=== PATIENT | male | born 1955 | race African-American/Black ===

== ENCOUNTER 2017-12-18 07:55 | Inpatient (IN) ==
[~2017-12-18 07:55] MED LIST: ACETAMINOPHEN 325 MG TABLET PO PRN; BISACODYL 5 MG TABLET PO PRN; MAGNESIUM HYDROXIDE SUSP 30 ML UDCUP PO PRN; ONDANSETRON 4 MG/2 ML VIAL IV PRN; PROMETHAZINE 25 MG TABLET PO PRN
[2017-12-18] MEDS ORDERED: HEPARIN 5,000 UNIT/1 ML VIAL ONE (11:50)
[2017-12-18] MEDS ORDERED: BUPIVACAINE MPF 0.25% /EPI 30 ML VIAL ONE (11:50)
[2017-12-18] MEDS ORDERED: LIDOCAINE 1%/EPI INJ 20 ML VIAL ONE (11:51)
[2017-12-18 13:14] LABS: Basophils % 0.4 % (0.0-0.8); Eosinophils # 0.2 10*3/uL (0.0-0.87); Eosinophils % 4.8 % (0.00-10.9); Hematocrit 21.7 VOL% (42.0-52.0); Immature Granulocytes % 0.6 %; Immature Granulocytes Absolute 0.03 #; Lymphocytes # 1.2 10*3/uL (1.4-4.0); Lymphocytes % 23.8 % (21.2-54.2); Mean Corpuscular HGB Conc 32.3 GM/DL (32-36); Mean Corpuscular Hemoglobin 30 PG (27-34); Mean Corpuscular Volume 91.6 FL (87-102); Mean Platelet Volume 11.3 FL (9.6-12.0); Monocytes # 0.4 10*3/uL (0.11-0.8); Monocytes % 6.9 % (1.7-12.7); Neutrophils # 3.2 10*3/uL (1.4-7.4); Neutrophils % 63.5 % (38.7-73.9); Platelet Count 157 T/CUMM (130-400); Red Blood Count 2.37 MC/CUMM (3.8-5.5); Red Cell Distribution Width 14.9 % (9.3-17.3)
[2017-12-18 13:40] LABS: Calcium 9.2 MG/DL (8.5-10.1); Osmolality,Calculated 303.7 MOS/KG (273-304); Potassium 5.4 MMOL/L (3.5-5.1)
[2017-12-18] MEDS ORDERED: ceFAZolin 1,000 MG VIAL ONE (14:11)
[2017-12-18] MEDS ORDERED: hydrALAZINE 20 MG/1 ML VIAL ONE (14:26)
[2017-12-18] MEDS ORDERED: hydrALAZINE 20 MG/1 ML VIAL IV ONE (14:27)
[2017-12-18] MEDS ORDERED: MIDAZOLAM 2 MG/2 ML VIAL ONE (14:30)
[2017-12-18] MEDS ORDERED: LOPERAMIDE 2 MG CAPSULE PO PRN (15:44)
[2017-12-18] MEDS ORDERED: ONDANSETRON ODT 4 MG TABLET PO PRN (15:44)
[2017-12-18] MEDS ORDERED: EPOETIN ALFA 10,000 UNIT/1 ML VIAL IV PRN (15:56)
[2017-12-18] MEDS ORDERED: ACETAMINOPHEN 325 MG TABLET PO PRN (15:58)
[2017-12-18] MEDS ORDERED: diphenhydrAMINE CAP 25 MG CAPSULE PO PRN (15:58)
[2017-12-18] MEDS ORDERED: SODIUM CHLORIDE 0.9% 1,000 ML IV PRN (15:58)
[2017-12-18] MEDS ORDERED: DEXTROSE 50% 25 GM/50 ML VIAL IV PRN (16:00)
[2017-12-18] MEDS ORDERED: GLUCAGON 1 MG VIAL IM PRN (16:00)
[2017-12-18] MEDS: INSULIN REGULAR 100 UNIT/ML SUBCUT SCH ×2 (17:00→23:49)
[2017-12-18 17:39] LABS: Hepatitis A Ab IgM Quant 0.14 Index; Hepatitis A Ab IgM Result Negative (Negative); Hepatitis B Core IgM Quant < 0.05 Index; Hepatitis B Core IgM Result Negative (Negative); Hepatitis B Surface Ag Quant 0.29 Index; Hepatitis B Surface Ag Result Negative (Negative); Hepatitis C Virus Ab Quant 0.11 Index; Hepatitis C Virus Ab Result Negative (Negative)
[2017-12-18 17:53] LABS: % Iron Saturation 26.7 % (18-50); Ferritin 91.5 ng/ml (26-388)
[2017-12-18] MEDS: GABAPENTIN 100 MG CAPSULE PO SCH (21:07)
[2017-12-18] MEDS: MEMANTINE 10 MG TABLET PO SCH (21:07)
[2017-12-18] MEDS: CARVEDILOL 12.5 MG TABLET PO SCH (21:07)
[2017-12-18] MEDS: PANTOPRAZOLE 40 MG TABLET PO SCH ×4 (21:07→23:53)
[2017-12-19] MEDS: INSULIN REGULAR 100 UNIT/ML SUBCUT SCH ×4 (08:15→20:11)
[2017-12-19] MEDS: MULTIVITAMIN (CENTRUM) TABLET PO SCH (09:40)
[2017-12-19] MEDS: ATORVASTATIN 40 MG TABLET PO SCH (09:44)
[2017-12-19] MEDS: DONEPEZIL 10 MG TABLET PO SCH (09:44)
[2017-12-19] MEDS: levETIRAcetam 250 MG TABLET PO SCH (09:44)
[2017-12-19] MEDS: ESCITALOPRAM 10 MG TABLET PO SCH (09:44)
[2017-12-19] MEDS: CARVEDILOL 12.5 MG TABLET PO SCH ×2 (09:45→20:46)
[2017-12-19] MEDS: MEMANTINE 10 MG TABLET PO SCH ×2 (09:45→20:46)
[2017-12-19] MEDS: DOXAZOSIN 4 MG TABLET PO SCH (09:45)
[2017-12-19] MEDS: ASPIRIN CHEW 81 MG TABLET PO SCH (09:45)
[2017-12-19] MEDS: GABAPENTIN 100 MG CAPSULE PO SCH ×2 (09:45→20:46)
[2017-12-19] MEDS ORDERED: EPOETIN ALFA 10,000 UNIT/1 ML VIAL SUBCUT ONE (12:00)
[2017-12-19] MEDS ORDERED: TUBERCULIN SKIN TEST 0.1 ML SYRINGE INTRADERM ONE (14:54)
[2017-12-19] MEDS: PANTOPRAZOLE 40 MG TABLET PO SCH (20:46)
[2017-12-20 05:44] LABS: Hemoglobin 9.5 GM/DL (14.0-18.0)
[2017-12-20] MEDS: DONEPEZIL 10 MG TABLET PO SCH (09:15)
[2017-12-20] MEDS: ASPIRIN CHEW 81 MG TABLET PO SCH (09:15)
[2017-12-20] MEDS: DOXAZOSIN 4 MG TABLET PO SCH (09:15)
[2017-12-20] MEDS: levETIRAcetam 250 MG TABLET PO SCH (09:16)
[2017-12-20] MEDS: MULTIVITAMIN (CENTRUM) TABLET PO SCH (09:16)
[2017-12-20] MEDS: GABAPENTIN 100 MG CAPSULE PO SCH (09:17)
[2017-12-20] MEDS: ESCITALOPRAM 10 MG TABLET PO SCH (09:17)
[2017-12-20] MEDS: CARVEDILOL 12.5 MG TABLET PO SCH (09:17)
[2017-12-20] MEDS: MEMANTINE 10 MG TABLET PO SCH (09:17)
[2017-12-20] MEDS: ATORVASTATIN 40 MG TABLET PO SCH (09:17)
[2017-12-20] MEDS: INSULIN REGULAR 100 UNIT/ML SUBCUT SCH ×2 (09:17→12:32)
[2017-12-20 16:31] VITALS: BP 147/75
== END 2017-12-20 16:31 | DRG 673 ==
LOC: N.ADMINP 07:55 → N.2W 08:00 → N.5E 10:49
PROVIDERS: ADMIT Internal Medicine Nephrology; ATTEND Internal Medicine Nephrology

== ENCOUNTER 2018-05-19 16:28 | Observation (INO) ==
[2018-05-19 17:49] LABS: Basophils % 0.2 % (0.0-0.8); Eosinophils # 0.2 10*3/uL (0.0-0.87); Eosinophils % 2.1 % (0.00-10.9); Hemoglobin 13.1 GM/DL (14.0-18.0); Immature Granulocytes % 0.6 %; Immature Granulocytes Absolute 0.05 #; Lymphocytes # 0.8 10*3/uL (1.4-4.0); Lymphocytes % 9.9 % (21.2-54.2); Mean Corpuscular HGB Conc 30.5 GM/DL (32-36); Mean Corpuscular Hemoglobin 29 PG (27-34); Mean Corpuscular Volume 96.4 FL (87-102); Mean Platelet Volume 11.1 FL (9.6-12.0); Monocytes # 0.5 10*3/uL (0.11-0.8); Monocytes % 5.6 % (1.7-12.7); NRBC # 0.02 10*3/uL; Neutrophils # 6.6 10*3/uL (1.4-7.4); Neutrophils % 81.6 % (38.7-73.9); Platelet Count 185 T/CUMM (130-400); Red Blood Count 4.46 MC/CUMM (3.8-5.5); Red Cell Distribution Width 15.8 % (9.3-17.3); White Blood Count 8.1 T/CUMM (4-12)
[2018-05-19 18:00] LABS: Alanine Aminotransferase 37 U/L (16-61); Albumin 3.9 G/DL (3.4-5.0); Alkaline Phosphatase 250 U/L (45-117); Aspartate Amino Transferase 23 U/L (0-37); Bilirubin,Total < 0.39 MG/DL (0.2-1.0); Blood Urea Nitrogen 11 MG/DL (7-18); Calcium 9.6 MG/DL (8.5-10.1); Glucose 228 MG/DL (74-106); Osmolality,Calculated 280.7 MOS/KG (273-304); Sodium 138 MMOL/L (136-145); Total Protein 8.8 G/DL (6.4-8.3); Troponin I < 0.015 NG/ML (0.00-0.045)
[2018-05-19 18:06] LABS: INR 1.1; PT Patient Result 11.9 SECS
[2018-05-19 18:09] LABS: Partial Thromboplastin Time 91.9 SECS (0-40)
[2018-05-19] MEDS ORDERED: DEXTROSE 50% 25 GM/50 ML SYRINGE IV PRN (19:14)
[2018-05-19] MEDS ORDERED: ACETAMINOPHEN 325 MG TABLET PO PRN (19:14)
[2018-05-19] MEDS ORDERED: ONDANSETRON 4 MG/2 ML VIAL IV PRN (19:14)
[2018-05-19] MEDS ORDERED: GLUCAGON 1 MG VIAL IM PRN (19:14)
[2018-05-19] MEDS ORDERED: ONDANSETRON ODT 4 MG TABLET PO PRN (19:17)
[2018-05-19] MEDS ORDERED: ENOXAPARIN 30 MG/0.3 ML SYRINGE SUBCUT SCH (19:30)
[2018-05-19] MEDS ORDERED: ATORVASTATIN 40 MG TABLET PO SCH (21:00)
[2018-05-19] MEDS ORDERED: DONEPEZIL 10 MG TABLET PO SCH (21:00)
[2018-05-19] MEDS ORDERED: MEMANTINE 5 MG TABLET PO SCH (21:00)
[2018-05-19] MEDS ORDERED: levETIRAcetam 500 MG TABLET PO SCH (21:00)
[2018-05-19] MEDS: INSULIN REGULAR 100 UNIT/ML SUBCUT SCH (22:01)
[2018-05-19] MEDS: CARVEDILOL 6.25 MG TABLET PO SCH (22:01)
[2018-05-19] MEDS: busPIRone 10 MG TABLET PO SCH (22:01)
[2018-05-19] MEDS: GABAPENTIN 100 MG CAPSULE PO SCH (22:02)
[2018-05-20] MEDS ORDERED: ASPIRIN CHEW 81 MG TABLET PO SCH (07:00)
[2018-05-20 07:16] LABS: Alanine Aminotransferase 32 U/L (16-61); Albumin 2.9 G/DL (3.4-5.0); Alkaline Phosphatase 190 U/L (45-117); Aspartate Amino Transferase 16 U/L (0-37); Bilirubin,Total < 0.39 MG/DL (0.2-1.0); Blood Urea Nitrogen 16 MG/DL (7-18); Calcium 9.1 MG/DL (8.5-10.1); Glucose 185 MG/DL (74-106); Osmolality,Calculated 286.3 MOS/KG (273-304); Potassium 4.4 MMOL/L (3.5-5.1); Sodium 141 MMOL/L (136-145); Total Protein 6.6 G/DL (6.4-8.3)
[2018-05-20] MEDS: INSULIN REGULAR 100 UNIT/ML SUBCUT SCH ×2 (08:02→11:31)
[2018-05-20] MEDS: busPIRone 10 MG TABLET PO SCH ×2 (08:18→14:37)
[2018-05-20] MEDS: CARVEDILOL 6.25 MG TABLET PO SCH (08:19)
[2018-05-20] MEDS: CALCIUM (CARBONATE) 500 MG TABLET PO SCH ×2 (08:19→11:31)
[2018-05-20] MEDS: GABAPENTIN 100 MG CAPSULE PO SCH (08:22)
[2018-05-20] MEDS ORDERED: POLYETHYLENE GLYCOL POWDER 17 GM PACK PO SCH (09:00)
[2018-05-20] MEDS ORDERED: MEMANTINE 5 MG TABLET PO SCH (09:00)
[2018-05-20] MEDS ORDERED: DOCUSATE SODIUM 100 MG CAPSULE PO SCH (09:00)
[2018-05-20] MEDS ORDERED: IRON SUCROSE 100 MG/5 ML VIAL IV PRN (09:00)
[2018-05-20] MEDS ORDERED: POTASSIUM CHLORIDE 20 MEQ TABLET PO SCH (09:00)
[2018-05-20] MEDS ORDERED: FERROUS SULFATE 325 MG TABLET PO SCH (09:00)
[2018-05-20] MEDS ORDERED: PANTOPRAZOLE 40 MG TABLET PO SCH (09:00)
[2018-05-20] MEDS ORDERED: MULTIVITAMIN (BEROCCA) TABLET PO SCH (09:00)
[2018-05-20] MEDS ORDERED: ESCITALOPRAM 10 MG TABLET PO SCH (09:00)
[2018-05-20] MEDS ORDERED: levETIRAcetam 500 MG TABLET PO SCH (09:00)
[2018-05-20] MEDS ORDERED: CALCIUM (CARBONATE)/VITAMIN D 500 MG-200 UNIT TABLET PO SCH (09:00)
[2018-05-20] MEDS ORDERED: DOXAZOSIN 4 MG TABLET PO SCH (09:00)
[2018-05-20 12:19] VITALS: BP 140/89
[2018-05-20] MEDS ORDERED: CINACALCET 30 MG TABLET PO SCH (17:00)
== END 2018-05-20 16:30 ==
LOC: EDUNIT# → EDBD → N.EDINP 16:28 → N.ED 16:28 → N.2E 20:10
PROVIDERS: ADMIT Internal Medicine; ATTEND Internal Medicine

== ENCOUNTER 2019-01-30 17:30 | Inpatient (IN) ==
[2019-01-30] MEDS ORDERED: NALOXONE 0.4 MG/ML VIAL ONE ×2 (17:46→17:56)
[2019-01-30] MEDS ORDERED: NALOXONE 0.4 MG/ML VIAL IV STA ×2 (18:02)
[2019-01-30 18:05] LABS: Basophils % 0.3 % (0.0-0.8); Eosinophils % 0.1 % (0.00-10.9); Hematocrit 34.2 VOL% (42.0-52.0); Hemoglobin 10.7 GM/DL (14.0-18.0); Immature Granulocytes % 0.3 %; Immature Granulocytes Absolute 0.02 #; Lymphocytes % 14.5 % (21.2-54.2); Mean Corpuscular HGB Conc 31.3 GM/DL (32-36); Mean Corpuscular Volume 97.4 FL (87-102); Mean Platelet Volume 9.9 FL (9.6-12.0); Monocytes % 9.1 % (1.7-12.7); Neutrophils % 75.7 % (38.7-73.9); Platelet Count 178 T/CUMM (130-400); Red Blood Count 3.51 MC/CUMM (3.8-5.5); Red Cell Distribution Width 14.4 % (9.3-17.3); White Blood Count 6.9 T/CUMM (4-12)
[2019-01-30 18:26] LABS: Albumin 3.7 G/DL (3.4-5.0); Bilirubin,Total 0.8 MG/DL (0.2-1.0); Calcium 9.2 MG/DL (8.5-10.1); Osmolality,Calculated 285.3 MOS/KG (273-304); Total Protein 8.1 G/DL (6.4-8.3)
[2019-01-30 18:43] LABS: ABG Base Excess 2.2 MMOL/L (-2.5-2.5); ABG HCO3 26.3 MMOL/L (20-26); ABG Oxygen Saturation 92.5 % (95-100); ABG PCO2 46.1 MM HG (35-48); ABG PH 7.387 (7.35-7.45); ABG PO2 69.4 MM HG (80-95); Allen Test Positive; Pt O2 Delivery Device Room Air
[2019-01-30] MEDS ORDERED: ALBUTEROL 2.5 MG/3 ML NEB RESP TX PRN (21:21)
[2019-01-30] MEDS ORDERED: DEXTROSE 50% 25 GM/50 ML VIAL IV PRN (21:21)
[2019-01-30] MEDS ORDERED: hydrALAZINE 20 MG/1 ML VIAL IV PRN (21:21)
[2019-01-30] MEDS ORDERED: ONDANSETRON 4 MG/2 ML VIAL IV PRN (21:21)
[2019-01-30] MEDS ORDERED: GLUCAGON 1 MG VIAL IM PRN (21:21)
[2019-01-30] MEDS ORDERED: AZITHROMYCIN INJ 500 MG in SODIUM CHLORIDE 0.9% 250 ML IV SCH (21:30)
[2019-01-30] MEDS ORDERED: VANCOMYCIN INJ 500 MG in SODIUM CHLORIDE 0.9% 250 ML IV PRN (21:40)
[2019-01-30] MEDS: DEXTROSE 5% NACL 0.45% 1,000 ML IV SCH (23:23)
[2019-01-31] MEDS ORDERED: VANCOMYCIN INJ 1,500 MG in SODIUM CHLORIDE 0.9% 500 ML IV ONE
[2019-01-31] MEDS: MEROPENEM 500 MG in SODIUM CHLORIDE 0.9% 100 ML IV SCH ×2 (00:38→21:57)
[2019-01-31] MEDS: ALBUTEROL/IPRATROPIUM 3 ML NEB RESP TX SCH ×4 (00:58→20:18)
[2019-01-31 12:59] LABS: Troponin I 0.019 NG/ML (0.00-0.045)
[2019-01-31 13:19] LABS: Folate 18.3 NG/ML (5.4-24.0); Vitamin B12 1571 PG/ML (211-911)
[2019-01-31 14:25] LABS: Calcium 8.5 MG/DL (8.5-10.1)
[2019-01-31] MEDS: FAMOTIDINE 20 MG TABLET PO SCH (16:12)
[2019-01-31] MEDS: busPIRone 10 MG TABLET PO SCH ×2 (16:12→21:58)
[2019-01-31] MEDS: CINACALCET 30 MG TABLET PO SCH (16:13)
[2019-01-31] MEDS ORDERED: AMINO ACIDS PROTEIN HYDROLYS PO SCH (21:00)
[2019-01-31] MEDS: levETIRAcetam 500 MG TABLET PO SCH (21:57)
[2019-01-31] MEDS: MEMANTINE 10 MG TABLET PO SCH (21:58)
[2019-01-31] MEDS: ATORVASTATIN 40 MG TABLET PO SCH (21:58)
[2019-01-31] MEDS: DONEPEZIL 10 MG TABLET PO SCH (21:58)
[2019-02-01] MEDS: ALBUTEROL/IPRATROPIUM 3 ML NEB RESP TX SCH ×4 (00:44→19:53)
[2019-02-01] MEDS: FAMOTIDINE 20 MG TABLET PO SCH ×2 (03:18→15:13)
[2019-02-01 06:20] LABS: Basophils % 0.2 % (0.0-0.8); Eosinophils # 0.1 10*3/uL (0.0-0.87); Eosinophils % 1.5 % (0.00-10.9); Hematocrit 29.2 VOL% (42.0-52.0); Hemoglobin 9.3 GM/DL (14.0-18.0); Immature Granulocytes % 0.3 %; Immature Granulocytes Absolute 0.03 #; Lymphocytes % 11.3 % (21.2-54.2); Mean Corpuscular HGB Conc 31.8 GM/DL (32-36); Mean Corpuscular Volume 95.1 FL (87-102); Mean Platelet Volume 10.5 FL (9.6-12.0); Monocytes % 7.9 % (1.7-12.7); Neutrophils % 78.8 % (38.7-73.9); Platelet Count 159 T/CUMM (130-400); Red Blood Count 3.07 MC/CUMM (3.8-5.5); White Blood Count 8.8 T/CUMM (4-12)
[2019-02-01 06:35] LABS: Albumin 3.1 G/DL (3.4-5.0); Bilirubin,Total 0.6 MG/DL (0.2-1.0); Calcium 8.3 MG/DL (8.5-10.1); Osmolality,Calculated 291.1 MOS/KG (273-304); Total Protein 6.9 G/DL (6.4-8.3)
[2019-02-01 06:39] LABS: Troponin I < 0.015 NG/ML (0.00-0.045)
[2019-02-01] MEDS ORDERED: PIPERACILLIN/TAZOBACTAM 3,375 MG in SODIUM CHLORIDE 0.9% 100 ML IV SCH (13:00)
[2019-02-01] MEDS: busPIRone 10 MG TABLET PO SCH ×3 (13:09→22:00)
[2019-02-01] MEDS: DOCUSATE SODIUM 100 MG CAPSULE PO SCH (15:13)
[2019-02-01] MEDS: ESCITALOPRAM 10 MG TABLET PO SCH (15:13)
[2019-02-01] MEDS: CALCIUM (CARBONATE)/VITAMIN D 500 MG-200 UNIT TABLET PO SCH (15:13)
[2019-02-01] MEDS: MEMANTINE 5 MG TABLET PO SCH (15:13)
[2019-02-01] MEDS: levETIRAcetam 500 MG TABLET PO SCH ×2 (15:14→22:00)
[2019-02-01] MEDS: POLYETHYLENE GLYCOL POWDER 17 GM PACK PO SCH (15:14)
[2019-02-01] MEDS: FERROUS SULFATE 325 MG TABLET PO SCH (15:14)
[2019-02-01] MEDS: MULTIVITAMIN (BEROCCA) TABLET PO SCH (15:14)
[2019-02-01] MEDS: ASPIRIN CHEW 81 MG TABLET PO SCH (15:17)
[2019-02-01] MEDS: SEVELAMER CARBONATE POWDER 2.4 GM PACK PO SCH (15:26)
[2019-02-01] MEDS: CINACALCET 30 MG TABLET PO SCH (16:57)
[2019-02-01] MEDS: ATORVASTATIN 40 MG TABLET PO SCH (22:00)
[2019-02-01] MEDS: DONEPEZIL 10 MG TABLET PO SCH (22:00)
[2019-02-01] MEDS: MEMANTINE 10 MG TABLET PO SCH (22:00)
[2019-02-01] MEDS: AMOXICILLIN/CLAV 500 MG TABLET PO SCH (22:00)
[2019-02-02] MEDS: ALBUTEROL/IPRATROPIUM 3 ML NEB RESP TX SCH ×4 (00:57→20:27)
[2019-02-02] MEDS: FAMOTIDINE 20 MG TABLET PO SCH ×2 (01:24→14:50)
[2019-02-02 05:44] LABS: Basophils % 0.3 % (0.0-0.8); Eosinophils # 0.2 10*3/uL (0.0-0.87); Eosinophils % 2.6 % (0.00-10.9); Hematocrit 28.3 VOL% (42.0-52.0); Immature Granulocytes % 0.4 %; Immature Granulocytes Absolute 0.03 #; Lymphocytes # 1.1 10*3/uL (1.4-4.0); Lymphocytes % 16.3 % (21.2-54.2); Mean Corpuscular HGB Conc 31.8 GM/DL (32-36); Mean Corpuscular Volume 95.6 FL (87-102); Monocytes % 7.1 % (1.7-12.7); Neutrophils % 73.3 % (38.7-73.9); Platelet Count 169 T/CUMM (130-400); Red Blood Count 2.96 MC/CUMM (3.8-5.5); Red Cell Distribution Width 13.8 % (9.3-17.3); White Blood Count 6.9 T/CUMM (4-12)
[2019-02-02 06:00] LABS: Calcium 8.3 MG/DL (8.5-10.1); Osmolality,Calculated 289.4 MOS/KG (273-304)
[2019-02-02] MEDS: POLYETHYLENE GLYCOL POWDER 17 GM PACK PO SCH (10:05)
[2019-02-02] MEDS: busPIRone 10 MG TABLET PO SCH ×3 (10:06→20:45)
[2019-02-02] MEDS: ASPIRIN CHEW 81 MG TABLET PO SCH (10:06)
[2019-02-02] MEDS: levETIRAcetam 500 MG TABLET PO SCH ×2 (10:06→20:45)
[2019-02-02] MEDS: MULTIVITAMIN (BEROCCA) TABLET PO SCH (10:06)
[2019-02-02] MEDS: FERROUS SULFATE 325 MG TABLET PO SCH (10:06)
[2019-02-02] MEDS: CALCIUM (CARBONATE)/VITAMIN D 500 MG-200 UNIT TABLET PO SCH (10:06)
[2019-02-02] MEDS: MEMANTINE 5 MG TABLET PO SCH (10:06)
[2019-02-02] MEDS: ESCITALOPRAM 10 MG TABLET PO SCH (10:06)
[2019-02-02] MEDS: DOCUSATE SODIUM 100 MG CAPSULE PO SCH (10:06)
[2019-02-02] MEDS: SEVELAMER CARBONATE POWDER 2.4 GM PACK PO SCH (10:07)
[2019-02-02] MEDS: CINACALCET 30 MG TABLET PO SCH (17:25)
[2019-02-02] MEDS: DONEPEZIL 10 MG TABLET PO SCH (20:45)
[2019-02-02] MEDS: MEMANTINE 10 MG TABLET PO SCH (20:45)
[2019-02-02] MEDS: ATORVASTATIN 40 MG TABLET PO SCH (20:45)
[2019-02-02] MEDS: AMOXICILLIN/CLAV 500 MG TABLET PO SCH (20:45)
[2019-02-03] MEDS: ALBUTEROL/IPRATROPIUM 3 ML NEB RESP TX SCH ×4 (00:09→20:12)
[2019-02-03] MEDS: FAMOTIDINE 20 MG TABLET PO SCH ×3 (00:10→23:19)
[2019-02-03 06:12] LABS: Basophils % 0.4 % (0.0-0.8); Eosinophils # 0.2 10*3/uL (0.0-0.87); Eosinophils % 3.6 % (0.00-10.9); Hematocrit 28.2 VOL% (42.0-52.0); Hemoglobin 9.1 GM/DL (14.0-18.0); Immature Granulocytes % 0.4 %; Immature Granulocytes Absolute 0.02 #; Lymphocytes % 19.5 % (21.2-54.2); Mean Corpuscular HGB Conc 32.3 GM/DL (32-36); Mean Platelet Volume 10.5 FL (9.6-12.0); Monocytes % 7.3 % (1.7-12.7); Neutrophils % 68.8 % (38.7-73.9); Platelet Count 202 T/CUMM (130-400); Red Cell Distribution Width 13.7 % (9.3-17.3); White Blood Count 5.2 T/CUMM (4-12)
[2019-02-03 06:25] LABS: Calcium 8.3 MG/DL (8.5-10.1); Osmolality,Calculated 287.5 MOS/KG (273-304)
[2019-02-03] MEDS ORDERED: LIDOCAINE 1%/EPI INJ 20 ML VIAL ONE (08:04)
[2019-02-03] MEDS ORDERED: HEPARIN 5,000 UNIT/1 ML VIAL ONE (08:04)
[2019-02-03] MEDS ORDERED: BUPIVACAINE MPF 0.25% 30 ML VIAL ONE (08:04)
[2019-02-03] MEDS ORDERED: PROPOFOL 200 MG/20 ML VIAL IV ONE (10:02)
[2019-02-03] MEDS ORDERED: LIDOCAINE 2% 5 ML VIAL ONE (10:02)
[2019-02-03] MEDS ORDERED: PHENYLEPHRINE 1 MG/10 ML SYRINGE IV ONE (10:03)
[2019-02-03] MEDS ORDERED: fentaNYL 100 MCG/2 ML VIAL ONE (10:03)
[2019-02-03] MEDS ORDERED: SODIUM CHLORIDE 0.9% 250 ML IV ONE (10:03)
[2019-02-03] MEDS ORDERED: MIDAZOLAM 2 MG/2 ML VIAL ONE (10:03)
[2019-02-03] MEDS ORDERED: DEXAMETHASONE 4 MG/1 ML VIAL ONE ×2 (10:03)
[2019-02-03] MEDS ORDERED: ONDANSETRON 4 MG/2 ML VIAL ONE (10:03)
[2019-02-03] MEDS: POLYETHYLENE GLYCOL POWDER 17 GM PACK PO SCH (11:10)
[2019-02-03] MEDS: SEVELAMER CARBONATE POWDER 2.4 GM PACK PO SCH (11:10)
[2019-02-03] MEDS: MULTIVITAMIN (BEROCCA) TABLET PO SCH (11:11)
[2019-02-03] MEDS: CALCIUM (CARBONATE)/VITAMIN D 500 MG-200 UNIT TABLET PO SCH (11:11)
[2019-02-03] MEDS: ESCITALOPRAM 10 MG TABLET PO SCH (11:11)
[2019-02-03] MEDS: MEMANTINE 5 MG TABLET PO SCH (11:11)
[2019-02-03] MEDS: busPIRone 10 MG TABLET PO SCH ×3 (11:11→21:09)
[2019-02-03] MEDS: DOCUSATE SODIUM 100 MG CAPSULE PO SCH (11:11)
[2019-02-03] MEDS: levETIRAcetam 500 MG TABLET PO SCH ×2 (11:11→21:09)
[2019-02-03] MEDS: FERROUS SULFATE 325 MG TABLET PO SCH (11:12)
[2019-02-03] MEDS: CINACALCET 30 MG TABLET PO SCH (17:14)
[2019-02-03] MEDS: MEMANTINE 10 MG TABLET PO SCH (21:08)
[2019-02-03] MEDS: AMOXICILLIN/CLAV 500 MG TABLET PO SCH (21:09)
[2019-02-03] MEDS: DONEPEZIL 10 MG TABLET PO SCH (21:09)
[2019-02-03] MEDS: ATORVASTATIN 40 MG TABLET PO SCH (21:09)
[2019-02-04] MEDS: ALBUTEROL/IPRATROPIUM 3 ML NEB RESP TX SCH ×4 (00:55→19:29)
[2019-02-04] MEDS: FERROUS SULFATE 325 MG TABLET PO SCH (08:45)
[2019-02-04] MEDS: CALCIUM (CARBONATE)/VITAMIN D 500 MG-200 UNIT TABLET PO SCH (08:45)
[2019-02-04] MEDS: ESCITALOPRAM 10 MG TABLET PO SCH (08:45)
[2019-02-04] MEDS: MEMANTINE 5 MG TABLET PO SCH (08:45)
[2019-02-04] MEDS: levETIRAcetam 500 MG TABLET PO SCH ×2 (08:46→21:33)
[2019-02-04] MEDS: DOCUSATE SODIUM 100 MG CAPSULE PO SCH (08:46)
[2019-02-04] MEDS: SEVELAMER CARBONATE POWDER 2.4 GM PACK PO SCH (08:46)
[2019-02-04] MEDS: busPIRone 10 MG TABLET PO SCH ×3 (08:46→21:32)
[2019-02-04] MEDS: POLYETHYLENE GLYCOL POWDER 17 GM PACK PO SCH (08:46)
[2019-02-04] MEDS: MULTIVITAMIN (BEROCCA) TABLET PO SCH (08:46)
[2019-02-04] MEDS: FAMOTIDINE 20 MG TABLET PO SCH (11:55)
[2019-02-04] MEDS: DEXTROSE 5% NACL 0.45% 1,000 ML IV SCH ×2 (12:51→12:52)
[2019-02-04] MEDS: carvediloL 6.25 MG TABLET PO SCH ×2 (14:10→16:13)
[2019-02-04] MEDS ORDERED: HEPARIN 10,000 UNIT/10 ML VIAL IV SCH (15:30)
[2019-02-04] MEDS: CINACALCET 30 MG TABLET PO SCH (16:13)
[2019-02-04] MEDS: DOXAZOSIN 4 MG TABLET PO SCH (16:13)
[2019-02-04] MEDS: MEMANTINE 10 MG TABLET PO SCH (18:39)
[2019-02-04] MEDS: AMOXICILLIN/CLAV 500 MG TABLET PO SCH (21:32)
[2019-02-04] MEDS: ATORVASTATIN 40 MG TABLET PO SCH (21:33)
[2019-02-04] MEDS: DONEPEZIL 10 MG TABLET PO SCH (21:35)
[2019-02-05] MEDS: FAMOTIDINE 20 MG TABLET PO SCH (00:48)
[2019-02-05] MEDS: ALBUTEROL/IPRATROPIUM 3 ML NEB RESP TX SCH ×3 (01:13→12:01)
[2019-02-05] MEDS ORDERED: HEPARIN 1,000 UNIT/1 ML VIAL ONE (07:40)
[2019-02-05] MEDS: ESCITALOPRAM 10 MG TABLET PO SCH (09:26)
[2019-02-05] MEDS: busPIRone 10 MG TABLET PO SCH ×2 (09:26→16:33)
[2019-02-05] MEDS: DOXAZOSIN 4 MG TABLET PO SCH (09:26)
[2019-02-05] MEDS: CALCIUM (CARBONATE)/VITAMIN D 500 MG-200 UNIT TABLET PO SCH (09:26)
[2019-02-05] MEDS: MULTIVITAMIN (BEROCCA) TABLET PO SCH (09:27)
[2019-02-05] MEDS: DOCUSATE SODIUM 100 MG CAPSULE PO SCH (09:27)
[2019-02-05] MEDS: POLYETHYLENE GLYCOL POWDER 17 GM PACK PO SCH (09:27)
[2019-02-05] MEDS: SEVELAMER CARBONATE POWDER 2.4 GM PACK PO SCH (09:27)
[2019-02-05] MEDS: FERROUS SULFATE 325 MG TABLET PO SCH (09:27)
[2019-02-05] MEDS: levETIRAcetam 500 MG TABLET PO SCH (09:27)
[2019-02-05] MEDS: carvediloL 6.25 MG TABLET PO SCH ×2 (09:27→17:57)
[2019-02-05] MEDS: MEMANTINE 5 MG TABLET PO SCH (09:27)
[2019-02-05] MEDS ORDERED: GLUCAGON 1 MG VIAL IM PRN (13:08)
[2019-02-05] MEDS ORDERED: DEXTROSE 50% 25 GM/50 ML VIAL IV PRN (13:08)
[2019-02-05] MEDS ORDERED: INSULIN REGULAR 100 UNIT/ML SUBCUT SCH (16:30)
[2019-02-05 17:25] VITALS: BP 127/96
[2019-02-05] MEDS: CINACALCET 30 MG TABLET PO SCH (17:57)
== END 2019-02-05 18:16 | DRG 981 ==
LOC: EDUNIT# → EDBD → N.ED 17:30 → N.EDINP 21:21 → N.2E 21:58
PROVIDERS: ADMIT Internal Medicine; ATTEND Internal Medicine

== ENCOUNTER 2020-06-05 17:00 | Observation (INO) ==
[2020-06-05 18:16] LABS: Basophils % 0.2 % (0.0-0.8); Eosinophils # 0.1 10*3/uL (0.0-0.87); Eosinophils % 2.4 % (0.00-10.9); Hematocrit 32.7 VOL% (42.0-52.0); Hemoglobin 10.6 GM/DL (14.0-18.0); Immature Granulocytes % 0.5 %; Immature Granulocytes Absolute 0.02 #; Lymphocytes # 1.3 10*3/uL (1.4-4.0); Lymphocytes % 32.3 % (21.2-54.2); Mean Corpuscular HGB Conc 32.4 GM/DL (32-36); Mean Corpuscular Volume 94.8 FL (87-102); Monocytes % 8.7 % (1.7-12.7); Neutrophils % 55.9 % (38.7-73.9); Platelet Count 222 T/CUMM (130-400); Red Blood Count 3.45 MC/CUMM (3.8-5.5); Red Cell Distribution Width 15.7 % (9.3-17.3); White Blood Count 4.1 T/CUMM (4-12)
[2020-06-05 18:27] LABS: INR 1.1; PT Patient Result 11.3 SECS (9.8-11.9)
[2020-06-05 18:41] LABS: Albumin 3.8 G/DL (3.4-5.0); Bilirubin,Total 0.4 MG/DL (0.2-1.0); Calcium 9.8 MG/DL (8.5-10.1); Osmolality,Calculated 279.3 MOS/KG (273-304); Potassium 2.9 MMOL/L (3.5-5.1); Thyroid Stimulating Hormone 1.71 uIU/ml (0.358-3.74)
[2020-06-05] MEDS ORDERED: GLUCAGON 1 MG VIAL IM PRN (19:10)
[2020-06-05] MEDS ORDERED: DEXTROSE 50% 25 GM/50 ML VIAL IV PRN (19:10)
[2020-06-05] MEDS ORDERED: FAMOTIDINE 20 MG TABLET PO PRN (19:12)
[2020-06-05] MEDS ORDERED: POLYETHYLENE GLYCOL POWDER 17 GM PACK PO PRN (19:12)
[2020-06-05] MEDS ORDERED: MEGESTROL 40 MG TABLET PO PRN (19:12)
[2020-06-05 19:27] LABS: ABG Base Excess 9.7 MMOL/L (-2.5-2.5); ABG HCO3 33.4 MMOL/L (20-26); ABG Oxygen Saturation 97.4 % (95-100); ABG PCO2 43.3 MM HG (35-48); ABG PH 7.503 (7.35-7.45); ABG PO2 92.3 MM HG (80-95); ABG TCO2 30.4 MMOL/L (23-27); Allen Test Positive; Pt O2 Delivery Device Room Air
[2020-06-05] MEDS ORDERED: ATORVASTATIN 40 MG TABLET PO SCH (21:00)
[2020-06-05] MEDS ORDERED: DONEPEZIL 10 MG TABLET PO SCH (21:00)
[2020-06-05] MEDS: POTASSIUM CHLORIDE RIDER 10 MEQ in PREMIX 1 EACH IV SCH ×2 (22:23→23:27)
[2020-06-05] MEDS: levETIRAcetam 500 MG TABLET PO SCH (22:27)
[2020-06-05] MEDS: DICYCLOMINE 20 MG TABLET PO SCH (22:27)
[2020-06-05] MEDS: MEMANTINE 5 MG TABLET PO SCH (22:29)
[2020-06-06 05:09] LABS: Eosinophils # 0.1 10*3/uL (0.0-0.87); Eosinophils % 2.9 % (0.00-10.9); Hematocrit 32.5 VOL% (42.0-52.0); Hemoglobin 10.5 GM/DL (14.0-18.0); Lymphocytes # 1.4 10*3/uL (1.4-4.0); Lymphocytes % 36.1 % (21.2-54.2); Mean Corpuscular HGB Conc 32.3 GM/DL (32-36); Mean Corpuscular Volume 96.4 FL (87-102); Mean Platelet Volume 9.1 FL (9.6-12.0); Monocytes % 9.7 % (1.7-12.7); NRBC # 0.02 10*3/uL; Neutrophils % 51.3 % (38.7-73.9); Platelet Count 221 T/CUMM (130-400); Red Blood Count 3.37 MC/CUMM (3.8-5.5); Red Cell Distribution Width 15.8 % (9.3-17.3); White Blood Count 3.8 T/CUMM (4-12)
[2020-06-06 05:26] LABS: Osmolality,Calculated 279.3 MOS/KG (273-304); Potassium 3.1 MMOL/L (3.5-5.1); Risk Ratio 1.9; VLDL CHOLESTEROL 14.4 MG/DL
[2020-06-06] MEDS ORDERED: SEVELAMER CARBONATE POWDER 2.4 GM PACK PO SCH (08:00)
[2020-06-06 08:18] VITALS: BP 92/68
[2020-06-06] MEDS ORDERED: CALCIUM (CARBONATE)/VITAMIN D 500 MG-200 UNIT TABLET PO SCH (09:00)
[2020-06-06] MEDS: DICYCLOMINE 20 MG TABLET PO SCH (09:30)
[2020-06-06] MEDS: MEMANTINE 5 MG TABLET PO SCH (09:30)
[2020-06-06] MEDS: levETIRAcetam 500 MG TABLET PO SCH (09:30)
[2020-06-06] MEDS ORDERED: POTASSIUM CHLORIDE 20 MEQ TABLET PO ONE (10:45)
[2020-06-06] MEDS ORDERED: CINACALCET 30 MG TABLET PO SCH (17:00)
== END 2020-06-06 11:28 | disposition home or self-care (01) ==
LOC: EDUNIT# → EDBD → N.EDINP 17:00 → N.ED 17:00 → N.TELEN 20:07
PROVIDERS: ADMIT Internal Medicine; ATTEND Internal Medicine

== ENCOUNTER 2021-03-15 00:32 | Inpatient (IN) ==
[2021-03-15 01:07] LABS: Basophils % 0.1 % (0.0-0.8); Eosinophils # 0.1 10*3/uL (0.0-0.87); Eosinophils % 0.7 % (0.00-10.9); Hematocrit 21.6 VOL% (42.0-52.0); Immature Granulocytes % 0.6 %; Immature Granulocytes Absolute 0.06 #; Lymphocytes # 1.2 10*3/uL (1.4-4.0); Lymphocytes % 11.7 % (21.2-54.2); Mean Corpuscular HGB Conc 27.8 GM/DL (32-36); Mean Corpuscular Volume 96.4 FL (87-102); Monocytes % 5.9 % (1.7-12.7); NRBC # 0.02 10*3/uL; Platelet Count 285 T/CUMM (130-400); Red Blood Count 2.24 MC/CUMM (3.8-5.5); Red Cell Distribution Width 21.9 % (9.3-17.3); White Blood Count 10.4 T/CUMM (4-12)
[2021-03-15 01:37] LABS: Platelet Estimate Normal; Polychromasia 1+
[2021-03-15 01:38] LABS: Hypochromia 2+; Ovalocytes 1+
[2021-03-15 01:47] LABS: Alanine Aminotransferase 16 U/L (16-61); Albumin 1.6 G/DL (3.4-5.0); Alkaline Phosphatase 98 U/L (45-117); Aspartate Amino Transferase 40 U/L (0-37); Blood Urea Nitrogen 59 MG/DL (7-18); Calcium 9.8 MG/DL (8.5-10.1); Carbon Dioxide 26 MMOL/L (21-32); Glucose 177 MG/DL (74-106); Osmolality,Calculated 303.1 MOS/KG (273-304); Potassium 4.4 MMOL/L (3.5-5.1); Sodium 142 MMOL/L (136-145); Total Protein 7.4 G/DL (6.4-8.2)
[2021-03-15 01:49] LABS: Estimated Glom Filtration Rate 0 ML/MIN
[2021-03-15] MEDS ORDERED: GLUCAGON 1 MG VIAL IM PRN (02:54)
[2021-03-15] MEDS ORDERED: hydrALAZINE 20 MG/1 ML VIAL IV PRN (02:54)
[2021-03-15] MEDS ORDERED: ONDANSETRON 4 MG/2 ML VIAL IV PRN (02:54)
[2021-03-15] MEDS ORDERED: DEXTROSE 50% 25 GM/50 ML SYRINGE IV PRN (02:54)
[2021-03-15] MEDS ORDERED: SODIUM CHLORIDE 0.9% 1,000 ML IV PRN ×2 (03:05→07:23)
[2021-03-15 04:57] LABS: Bacteria,Urine Occasional /HPF (Few); Bilirubin,Urine Negative (Negative); Blood, Urine Negative (Negative); Glucose,Urine (UA) Negative (Negative); Ketones,Urine 5 mg/dL (Negative); Nitrite,Urine Negative (Negative); Protein,Urine 100 MG/DL; RBC,Urine 2 /HPF (0-4); Squamous Epithelial Cell,Urine Occasional /HPF (0-10); Urine Appearance CLEAR (Clear); Urine Color Yellow (Yellow); Urine Specific Gravity 1.013 (1.001-1.035); Urine Urobilinogen < 2.0 EU/DL (<2.0)
[2021-03-15 05:38] LABS: Risk Ratio 3.21; Thyroid Stimulating Hormone 2.54 uIU/ml (0.358-3.74); VLDL Cholesterol 16.6 MG/DL
[2021-03-15] MEDS: INSULIN LISPRO 100 UNIT/ML SUBCUT SCH ×5 (06:17→21:00)
[2021-03-15] MEDS: PANTOPRAZOLE 40 MG VIAL IV SCH ×2 (09:55→22:16)
[2021-03-15] MEDS ORDERED: MEGESTROL 40 MG TABLET PO PRN (14:19)
[2021-03-15] MEDS ORDERED: PHENOL 1.4% THROAT SPRAY 177 ML BOTTLE PO PRN (14:19)
[2021-03-15] MEDS ORDERED: ACETAMINOPHEN 500 MG TABLET PO PRN (14:19)
[2021-03-15] MEDS ORDERED: HEPARIN LOCK FLUSH 500 UNIT/5 ML SYRINGE IV ONE (15:16)
[2021-03-15 16:50] LABS: Hematocrit 29.7 VOL% (42.0-52.0); Hemoglobin 8.9 GM/DL (14.0-18.0)
[2021-03-15] MEDS: DICYCLOMINE 20 MG TABLET PO SCH ×2 (17:00→21:00)
[2021-03-15] MEDS: DONEPEZIL 10 MG TABLET PO SCH (20:59)
[2021-03-15] MEDS: ATORVASTATIN 40 MG TABLET PO SCH (21:00)
[2021-03-15] MEDS: levETIRAcetam 500 MG TABLET PO SCH (21:00)
[2021-03-15] MEDS: MEMANTINE 5 MG TABLET PO SCH (21:00)
[2021-03-15] MEDS: QUEtiapine 25 MG TABLET PO SCH (21:00)
[2021-03-15 22:01] LABS: Hematocrit 33.4 VOL% (42.0-52.0); Hemoglobin 9.9 GM/DL (14.0-18.0)
[2021-03-16] MEDS: INSULIN LISPRO 100 UNIT/ML SUBCUT SCH ×6 (00:14→18:45)
[2021-03-16] MEDS ORDERED: SODIUM CHLORIDE 0.9% 250 ML IV ONE ×3 (01:30→10:26)
[2021-03-16 05:20] LABS: Basophils % 0.2 % (0.0-0.8); Eosinophils # 0.2 10*3/uL (0.0-0.87); Eosinophils % 1.6 % (0.00-10.9); Hematocrit 29.7 VOL% (42.0-52.0); Hemoglobin 8.8 GM/DL (14.0-18.0); Immature Granulocytes % 0.7 %; Immature Granulocytes Absolute 0.08 #; Lymphocytes # 0.9 10*3/uL (1.4-4.0); Lymphocytes % 8.4 % (21.2-54.2); Mean Corpuscular HGB Conc 29.6 GM/DL (32-36); Mean Corpuscular Volume 92.8 FL (87-102); Mean Platelet Volume 9.9 FL (9.6-12.0); Monocytes % 6.8 % (1.7-12.7); Neutrophils % 82.3 % (38.7-73.9); Platelet Count 247 T/CUMM (130-400); White Blood Count 10.8 T/CUMM (4-12)
[2021-03-16 05:44] LABS: Calcium 10.2 MG/DL (8.5-10.1); Osmolality,Calculated 311.7 MOS/KG (273-304); Potassium 4.8 MMOL/L (3.5-5.1)
[2021-03-16] MEDS ORDERED: DILTIAZEM 50 MG/10 ML VIAL IV ONE ×2 (08:02→09:30)
[2021-03-16] MEDS: SODIUM CHLORIDE 0.9% 1,000 ML IV SCH (08:14)
[2021-03-16] MEDS: SEVELAMER CARBONATE POWDER 2.4 GM PACK PO SCH (08:14)
[2021-03-16] MEDS: MEMANTINE 5 MG TABLET PO SCH ×2 (09:10→20:30)
[2021-03-16] MEDS: levETIRAcetam 500 MG TABLET PO SCH (09:10)
[2021-03-16] MEDS: DICYCLOMINE 20 MG TABLET PO SCH ×4 (09:10→20:30)
[2021-03-16] MEDS: PANTOPRAZOLE 40 MG VIAL IV SCH ×2 (10:17→21:04)
[2021-03-16] MEDS: cefTRIAXone 1,000 MG in SODIUM CHLORIDE 0.9% 100 ML IV SCH (11:59)
[2021-03-16] MEDS: DILTIAZEM INJ 100 MG in SODIUM CHLORIDE 0.9% 100 ML IV SCH ×2 (13:44→20:31)
[2021-03-16] MEDS ORDERED: VANCOMYCIN INJ 1,000 MG in SODIUM CHLORIDE 0.9% 250 ML IV ONE (16:19)
[2021-03-16] MEDS ORDERED: LORazepam 2 MG/1 ML VIAL IV STA (16:42)
[2021-03-16] MEDS: ATORVASTATIN 40 MG TABLET PO SCH (20:30)
[2021-03-16] MEDS: QUEtiapine 25 MG TABLET PO SCH (20:30)
[2021-03-16] MEDS: DONEPEZIL 10 MG TABLET PO SCH (20:30)
[2021-03-17] MEDS: INSULIN LISPRO 100 UNIT/ML SUBCUT SCH ×4 (00:11→18:25)
[2021-03-17 05:17] LABS: Basophils % 0.1 % (0.0-0.8); Eosinophils # 0.2 10*3/uL (0.0-0.87); Eosinophils % 2.2 % (0.00-10.9); Hematocrit 29.4 VOL% (42.0-52.0); Hemoglobin 8.5 GM/DL (14.0-18.0); Immature Granulocytes % 0.6 %; Immature Granulocytes Absolute 0.06 #; Lymphocytes % 9.9 % (21.2-54.2); Mean Corpuscular HGB Conc 28.9 GM/DL (32-36); Mean Corpuscular Volume 94.8 FL (87-102); Monocytes % 8.7 % (1.7-12.7); Neutrophils % 78.5 % (38.7-73.9); Platelet Count 242 T/CUMM (130-400); Red Cell Distribution Width 19.3 % (9.3-17.3); White Blood Count 9.6 T/CUMM (4-12)
[2021-03-17 05:39] LABS: Calcium 10.4 MG/DL (8.5-10.1); Osmolality,Calculated 321.7 MOS/KG (273-304); Potassium 5.3 MMOL/L (3.5-5.1)
[2021-03-17] MEDS: SEVELAMER CARBONATE POWDER 2.4 GM PACK PO SCH (08:33)
[2021-03-17] MEDS ORDERED: MORPHINE 2 MG/1 ML SYRINGE IV PRN (09:17)
[2021-03-17] MEDS ORDERED: ALUM/MAG/SIMETH/LIDO VISC 1:1 30 ML BOTTLE PO ONE (09:17)
[2021-03-17] MEDS: DICYCLOMINE 20 MG TABLET PO SCH ×2 (09:49→13:09)
[2021-03-17] MEDS: MEMANTINE 5 MG TABLET PO SCH ×2 (09:50→22:27)
[2021-03-17] MEDS: PANTOPRAZOLE 40 MG VIAL IV SCH ×2 (10:25→22:22)
[2021-03-17] MEDS: DILTIAZEM INJ 100 MG in SODIUM CHLORIDE 0.9% 100 ML IV SCH (11:16)
[2021-03-17] MEDS: cefTRIAXone 1,000 MG in SODIUM CHLORIDE 0.9% 100 ML IV SCH (11:56)
[2021-03-17] MEDS ORDERED: FUROSEMIDE 20 MG/2 ML VIAL IV ONE (12:23)
[2021-03-17 14:51] LABS: Hepatitis B Surface Ag Quant < 0.10 Index; Hepatitis B Surface Ag Result Non-Reactive (NonReactive)
[2021-03-17] MEDS ORDERED: PHENYTOIN INJ 1,000 MG in SODIUM CHLORIDE 0.9% 100 ML IV ONE (15:58)
[2021-03-17] MEDS: AMPICILLIN INJ 1,000 MG in SODIUM CHLORIDE 0.9% 100 ML IV SCH (18:43)
[2021-03-17] MEDS: DONEPEZIL 10 MG TABLET PO SCH (22:27)
[2021-03-17] MEDS: QUEtiapine 25 MG TABLET PO SCH (22:27)
[2021-03-17] MEDS: ATORVASTATIN 40 MG TABLET PO SCH (22:27)
[2021-03-18] MEDS: PHENYTOIN 100 MG/2 ML VIAL IV SCH ×4 (00:43→23:42)
[2021-03-18] MEDS: INSULIN LISPRO 100 UNIT/ML SUBCUT SCH ×4 (02:11→18:23)
[2021-03-18 05:55] LABS: Calcium 10.7 MG/DL (8.5-10.1); Potassium 4.9 MMOL/L (3.5-5.1)
[2021-03-18 06:18] LABS: Basophils % 0.1 % (0.0-0.8); Eosinophils # 0.4 10*3/uL (0.0-0.87); Hematocrit 31.2 VOL% (42.0-52.0); Immature Granulocytes % 0.7 %; Immature Granulocytes Absolute 0.05 #; Lymphocytes # 0.9 10*3/uL (1.4-4.0); Lymphocytes % 12.4 % (21.2-54.2); Mean Corpuscular HGB Conc 28.2 GM/DL (32-36); Mean Platelet Volume 10.1 FL (9.6-12.0); Monocytes % 8.7 % (1.7-12.7); Neutrophils % 73.1 % (38.7-73.9); Platelet Count 205 T/CUMM (130-400); Red Blood Count 3.25 MC/CUMM (3.8-5.5); Red Cell Distribution Width 18.8 % (9.3-17.3); White Blood Count 7.6 T/CUMM (4-12)
[2021-03-18 06:19] LABS: Hemoglobin 8.8 GM/DL (14.0-18.0)
[2021-03-18] MEDS: SEVELAMER CARBONATE POWDER 2.4 GM PACK PO SCH (08:14)
[2021-03-18] MEDS ORDERED: LACTATED RINGERS 500 ML IV ONE (08:15)
[2021-03-18] MEDS: SODIUM CHLORIDE 0.9% 1,000 ML IV SCH (08:17)
[2021-03-18] MEDS: DICYCLOMINE 20 MG TABLET PO SCH (09:23)
[2021-03-18] MEDS: MEMANTINE 5 MG TABLET PO SCH ×2 (09:23→21:51)
[2021-03-18] MEDS: PANTOPRAZOLE 40 MG VIAL IV SCH ×2 (09:41→21:59)
[2021-03-18] MEDS: DILTIAZEM INJ 100 MG in SODIUM CHLORIDE 0.9% 100 ML IV SCH (11:16)
[2021-03-18] MEDS: AMPICILLIN INJ 1,000 MG in SODIUM CHLORIDE 0.9% 100 ML IV SCH (18:14)
[2021-03-18] MEDS: FLUCONAZOLE INJ 200 MG/100 ML PREMIX IV SCH (18:25)
[2021-03-18] MEDS: QUEtiapine 25 MG TABLET PO SCH (21:51)
[2021-03-18] MEDS: ATORVASTATIN 40 MG TABLET PO SCH (21:51)
[2021-03-18] MEDS: DONEPEZIL 10 MG TABLET PO SCH (21:51)
[2021-03-19] MEDS: INSULIN LISPRO 100 UNIT/ML SUBCUT SCH ×5 (00:18→21:10)
[2021-03-19 06:00] LABS: Basophils % 0.1 % (0.0-0.8); Eosinophils # 0.2 10*3/uL (0.0-0.87); Eosinophils % 2.4 % (0.00-10.9); Hematocrit 31.7 VOL% (42.0-52.0); Immature Granulocytes % 0.9 %; Immature Granulocytes Absolute 0.08 #; Lymphocytes # 1.1 10*3/uL (1.4-4.0); Lymphocytes % 12.7 % (21.2-54.2); Mean Corpuscular HGB Conc 28.4 GM/DL (32-36); Mean Corpuscular Volume 97.2 FL (87-102); Monocytes % 6.7 % (1.7-12.7); Neutrophils % 77.2 % (38.7-73.9); Platelet Count 211 T/CUMM (130-400); Red Blood Count 3.26 MC/CUMM (3.8-5.5); Red Cell Distribution Width 18.5 % (9.3-17.3); White Blood Count 8.9 T/CUMM (4-12)
[2021-03-19 06:17] LABS: Calcium 9.5 MG/DL (8.5-10.1); Osmolality,Calculated 315.6 MOS/KG (273-304); Potassium 5.2 MMOL/L (3.5-5.1)
[2021-03-19 06:31] LABS: Hypochromia Slight; Platelet Estimate Normal
[2021-03-19] MEDS ORDERED: SODIUM CHLORIDE 0.9% 1,000 ML IV SCH (08:00)
[2021-03-19] MEDS: PHENYTOIN 100 MG/2 ML VIAL IV SCH ×3 (10:43→23:00)
[2021-03-19] MEDS: PANTOPRAZOLE 40 MG VIAL IV SCH ×2 (10:46→21:25)
[2021-03-19] MEDS: DICYCLOMINE 20 MG TABLET PO SCH (10:59)
[2021-03-19] MEDS: SEVELAMER CARBONATE POWDER 2.4 GM PACK PO SCH (10:59)
[2021-03-19] MEDS: MEMANTINE 5 MG TABLET PO SCH ×2 (10:59→20:56)
[2021-03-19] MEDS ORDERED: DEXTROSE 10% 250 ML BAG IV PRN (11:00)
[2021-03-19] MEDS ORDERED: ACETAMINOPHEN 500 MG TABLET PO PRN (15:50)
[2021-03-19] MEDS: DILTIAZEM INJ 100 MG in SODIUM CHLORIDE 0.9% 100 ML IV SCH (16:35)
[2021-03-19] MEDS: AMPICILLIN INJ 1,000 MG in SODIUM CHLORIDE 0.9% 100 ML IV SCH (17:43)
[2021-03-19] MEDS: FLUCONAZOLE INJ 200 MG/100 ML PREMIX IV SCH (18:25)
[2021-03-19] MEDS: DONEPEZIL 10 MG TABLET PO SCH (20:56)
[2021-03-19] MEDS: QUEtiapine 25 MG TABLET PO SCH (20:56)
[2021-03-19] MEDS: ATORVASTATIN 40 MG TABLET PO SCH (20:56)
[2021-03-19] MEDS: SODIUM CHLORIDE 0.9% IV SCH (21:10)
[2021-03-19] MEDS: LEVETIRACETAM IV SCH (21:10)
[2021-03-20 04:32] VITALS: BP 92/56
[2021-03-20] MEDS: PHENYTOIN 100 MG/2 ML VIAL IV SCH ×3 (04:54→17:57)
[2021-03-20 05:10] LABS: Basophils # 0.1 10*3/uL (0.0-0.2); Basophils % 0.5 % (0.0-0.8); Eosinophils # 0.2 10*3/uL (0.0-0.87); Hemoglobin 8.7 GM/DL (14.0-18.0); Immature Granulocytes % 1.6 %; Immature Granulocytes Absolute 0.18 #; Lymphocytes # 1.3 10*3/uL (1.4-4.0); Lymphocytes % 11.8 % (21.2-54.2); Mean Corpuscular Volume 95.8 FL (87-102); Mean Platelet Volume 10.8 FL (9.6-12.0); Monocytes % 6.5 % (1.7-12.7); Neutrophils % 77.6 % (38.7-73.9); Platelet Count 216 T/CUMM (130-400); Red Blood Count 3.13 MC/CUMM (3.8-5.5); Red Cell Distribution Width 18.2 % (9.3-17.3)
[2021-03-20 05:29] LABS: Osmolality,Calculated 321.8 MOS/KG (273-304); Potassium 5.9 MMOL/L (3.5-5.1)
[2021-03-20] MEDS ORDERED: VECURONIUM 10 MG VIAL IV ONE ×2 (05:34→05:44)
[2021-03-20] MEDS ORDERED: ETOMIDATE 20 MG/10 ML VIAL IV ONE ×2 (05:34→05:44)
[2021-03-20 05:39] LABS: Allen Test Positive
[2021-03-20] MEDS ORDERED: NOREPINEPHRINE 4 MG/4 ML VIAL IV ONE (05:39)
[2021-03-20 05:40] LABS: ABG HCO3 21.4 MMOL/L (20-26); ABG Oxygen Saturation 64.6 % (95-100); ABG PCO2 36.5 MM HG (35-48); ABG PH 7.381 (7.35-7.45); ABG TCO2 20.2 MMOL/L (23-27)
[2021-03-20 05:43] LABS: ABG PO2 40.4 MM HG (80-95)
[2021-03-20] MEDS: NOREPINEPHRINE 8 MG in SODIUM CHLORIDE 0.9% 242 ML IV PRN ×4 (05:49→20:27)
[2021-03-20 07:57] LABS: ABG Base Excess -6.1 MMOL/L (-2.5-2.5); ABG HCO3 19.4 MMOL/L (20-26); ABG PH 7.368 (7.35-7.45)
[2021-03-20] MEDS ORDERED: METOPROLOL TARTRATE 5 MG/5 ML VIAL IV ONE ×4 (07:58→14:59)
[2021-03-20] MEDS: MIDAZOLAM 100 MG in SODIUM CHLORIDE 0.9% 80 ML IV PRN (08:08)
[2021-03-20] MEDS: PANTOPRAZOLE 40 MG VIAL IV SCH (09:44)
[2021-03-20] MEDS: DICYCLOMINE 20 MG TABLET PO SCH (09:44)
[2021-03-20] MEDS: MEMANTINE 5 MG TABLET PO SCH ×2 (09:44→21:28)
[2021-03-20] MEDS: SEVELAMER CARBONATE POWDER 2.4 GM PACK PO SCH (09:44)
[2021-03-20] MEDS: SODIUM CHLORIDE 0.9% IV SCH ×2 (09:58→21:29)
[2021-03-20] MEDS: LEVETIRACETAM IV SCH ×2 (09:58→21:29)
[2021-03-20 11:13] LABS: ABG Base Excess -6.2 MMOL/L (-2.5-2.5); ABG HCO3 19.4 MMOL/L (20-26); ABG Oxygen Saturation 99.6 % (95-100); ABG PCO2 32.2 MM HG (35-48); ABG PH 7.363 (7.35-7.45); ABG TCO2 16.6 MMOL/L (23-27)
[2021-03-20] MEDS: INSULIN LISPRO 100 UNIT/ML SUBCUT SCH ×2 (12:51→18:13)
[2021-03-20] MEDS: AMPICILLIN INJ 1,000 MG in SODIUM CHLORIDE 0.9% 100 ML IV SCH (18:04)
[2021-03-20] MEDS: FLUCONAZOLE INJ 200 MG/100 ML PREMIX IV SCH (18:09)
[2021-03-20] MEDS: ACETAMINOPHEN 325 MG TABLET PO PRN (18:26)
[2021-03-20] MEDS: INSULIN GLARGINE 100 UNIT/ML SUBCUT SCH (21:28)
[2021-03-20] MEDS: DONEPEZIL 10 MG TABLET PO SCH (21:29)
[2021-03-20] MEDS: ATORVASTATIN 40 MG TABLET PO SCH (21:29)
[2021-03-20] MEDS: QUEtiapine 25 MG TABLET PO SCH (21:29)
[2021-03-20] MEDS: METOPROLOL TARTRATE 5 MG/5 ML VIAL IV PRN (21:58)
[2021-03-21] MEDS: PHENYTOIN 100 MG/2 ML VIAL IV SCH ×5 (01:38→23:14)
[2021-03-21] MEDS: INSULIN LISPRO 100 UNIT/ML SUBCUT SCH ×4 (01:41→17:24)
[2021-03-21] MEDS: NOREPINEPHRINE 8 MG in SODIUM CHLORIDE 0.9% 242 ML IV PRN ×2 (01:56→10:50)
[2021-03-21 06:19] LABS: ABG Base Excess -1.7 MMOL/L (-2.5-2.5); ABG Oxygen Saturation 99.3 % (95-100); ABG PCO2 34.3 MM HG (35-48); ABG PH 7.421 (7.35-7.45); ABG TCO2 20.7 MMOL/L (23-27)
[2021-03-21 06:38] LABS: Calcium 10.7 MG/DL (8.5-10.1)
[2021-03-21 06:55] LABS: Basophils # 0.1 10*3/uL (0.0-0.2); Basophils % 0.4 % (0.0-0.8); Eosinophils # 0.3 10*3/uL (0.0-0.87); Eosinophils % 2.3 % (0.00-10.9); Hematocrit 29.1 VOL% (42.0-52.0); Hemoglobin 8.4 GM/DL (14.0-18.0); Immature Granulocytes % 0.9 %; Immature Granulocytes Absolute 0.13 #; Lymphocytes # 1.3 10*3/uL (1.4-4.0); Lymphocytes % 9.1 % (21.2-54.2); Mean Corpuscular HGB Conc 28.9 GM/DL (32-36); Mean Platelet Volume 10.5 FL (9.6-12.0); NRBC # 0.02 10*3/uL; Neutrophils % 81.3 % (38.7-73.9); Platelet Count 276 T/CUMM (130-400); Red Blood Count 3.03 MC/CUMM (3.8-5.5); Red Cell Distribution Width 17.5 % (9.3-17.3); White Blood Count 14.1 T/CUMM (4-12)
[2021-03-21 06:58] LABS: Anisocytosis 1+; Platelet Estimate Normal
[2021-03-21 06:59] LABS: Burr Cells Few; Macrocytosis 1+; Ovalocytes Few
[2021-03-21] MEDS: MIDAZOLAM 100 MG in SODIUM CHLORIDE 0.9% 80 ML IV PRN (07:07)
[2021-03-21] MEDS ORDERED: DEXMEDETOMIDINE 400 MCG in SODIUM CHLORIDE 0.9% 96 ML IV PRN (09:01)
[2021-03-21] MEDS: MEMANTINE 5 MG TABLET PO SCH ×2 (09:36→21:34)
[2021-03-21] MEDS: DICYCLOMINE 20 MG TABLET PO SCH (09:36)
[2021-03-21] MEDS: SEVELAMER CARBONATE POWDER 2.4 GM PACK PO SCH (09:36)
[2021-03-21] MEDS: SODIUM CHLORIDE 0.9% IV SCH (09:38)
[2021-03-21] MEDS: LEVETIRACETAM IV SCH (09:38)
[2021-03-21] MEDS: PANTOPRAZOLE 40 MG VIAL IV SCH (09:40)
[2021-03-21] MEDS ORDERED: MORPHINE 2 MG/1 ML SYRINGE ONE (11:36)
[2021-03-21] MEDS: MORPHINE 2 MG/1 ML SYRINGE IV PRN ×2 (11:36→23:56)
[2021-03-21] MEDS: METOPROLOL TARTRATE 5 MG/5 ML VIAL IV PRN (12:17)
[2021-03-21] MEDS: ACETAMINOPHEN 325 MG TABLET PO PRN (17:12)
[2021-03-21] MEDS: AMPICILLIN INJ 1,000 MG in SODIUM CHLORIDE 0.9% 100 ML IV SCH (17:19)
[2021-03-21] MEDS: FLUCONAZOLE INJ 200 MG/100 ML PREMIX IV SCH (17:20)
[2021-03-21] MEDS: DONEPEZIL 10 MG TABLET PO SCH (21:34)
[2021-03-21] MEDS: QUEtiapine 25 MG TABLET PO SCH (21:34)
[2021-03-21] MEDS: INSULIN GLARGINE 100 UNIT/ML SUBCUT SCH (21:35)
[2021-03-21] MEDS: ATORVASTATIN 40 MG TABLET PO SCH (21:35)
[2021-03-22] MEDS: INSULIN LISPRO 100 UNIT/ML SUBCUT SCH ×5 (00:06→23:58)
[2021-03-22 04:20] LABS: Basophils % 0.1 % (0.0-0.8); Eosinophils # 0.7 10*3/uL (0.0-0.87); Eosinophils % 4.2 % (0.00-10.9); Hematocrit 26.8 VOL% (42.0-52.0); Hemoglobin 7.6 GM/DL (14.0-18.0); Immature Granulocytes % 0.9 %; Immature Granulocytes Absolute 0.14 #; Lymphocytes # 1.3 10*3/uL (1.4-4.0); Lymphocytes % 8.3 % (21.2-54.2); Mean Corpuscular HGB Conc 28.4 GM/DL (32-36); Mean Corpuscular Volume 96.8 FL (87-102); Mean Platelet Volume 10.1 FL (9.6-12.0); Monocytes % 5.2 % (1.7-12.7); NRBC # 0.02 10*3/uL; Neutrophils % 81.3 % (38.7-73.9); Platelet Count 264 T/CUMM (130-400); Red Blood Count 2.77 MC/CUMM (3.8-5.5); Red Cell Distribution Width 17.3 % (9.3-17.3); White Blood Count 15.7 T/CUMM (4-12)
[2021-03-22] MEDS: NOREPINEPHRINE 8 MG in SODIUM CHLORIDE 0.9% 242 ML IV PRN ×2 (04:32→17:02)
[2021-03-22 04:38] LABS: ABG HCO3 21.9 MMOL/L (20-26); ABG Oxygen Saturation 99.2 % (95-100); ABG PCO2 36.3 MM HG (35-48); ABG PH 7.384 (7.35-7.45); ABG TCO2 20.3 MMOL/L (23-27)
[2021-03-22 04:51] LABS: Alanine Aminotransferase 32 U/L (16-61); Albumin 1.2 G/DL (3.4-5.0); Alkaline Phosphatase 88 U/L (45-117); Aspartate Amino Transferase 74 U/L (0-37); Bilirubin,Total < 0.39 MG/DL (0.20-1.00); Blood Urea Nitrogen 70 MG/DL (7-18); Calcium 10.9 MG/DL (8.5-10.1); Carbon Dioxide 21 MMOL/L (21-32); Estimated Glom Filtration Rate 7 ML/MIN; Glucose 164 MG/DL (74-106); Potassium 4.9 MMOL/L (3.5-5.1); Sodium 143 MMOL/L (136-145); Total Protein 6.7 G/DL (6.4-8.2)
[2021-03-22 04:59] LABS: Calcium 10.6 MG/DL (8.5-10.1); Osmolality,Calculated 308.8 MOS/KG (273-304); Potassium 4.9 MMOL/L (3.5-5.1)
[2021-03-22] MEDS: PHENYTOIN 100 MG/2 ML VIAL IV SCH ×3 (05:26→19:30)
[2021-03-22] MEDS ORDERED: GENTAMICIN INJ 120 MG/100 ML PREMIX IV ONE (09:00)
[2021-03-22] MEDS ORDERED: AMPICILLIN INJ 2,000 MG in SODIUM CHLORIDE 0.9% 100 ML IV SCH (09:00)
[2021-03-22] MEDS: SEVELAMER CARBONATE POWDER 2.4 GM PACK PO SCH (09:40)
[2021-03-22] MEDS: MEMANTINE 5 MG TABLET PO SCH ×2 (09:40→22:29)
[2021-03-22] MEDS: PANTOPRAZOLE 40 MG VIAL IV SCH (09:41)
[2021-03-22] MEDS: DICYCLOMINE 20 MG TABLET PO SCH (09:43)
[2021-03-22] MEDS: MIDAZOLAM 100 MG in SODIUM CHLORIDE 0.9% 80 ML IV PRN (13:10)
[2021-03-22] MEDS ORDERED: DIGOXIN 0.5 MG/2 ML AMP IV ONE ×2 (14:30→15:30)
[2021-03-22] MEDS ORDERED: HEPARIN 10,000 UNIT/10 ML VIAL IV ONE (16:45)
[2021-03-22] MEDS: FLUCONAZOLE INJ 200 MG/100 ML PREMIX IV SCH (19:34)
[2021-03-22] MEDS: QUEtiapine 25 MG TABLET PO SCH (22:29)
[2021-03-22] MEDS: ATORVASTATIN 40 MG TABLET PO SCH (22:29)
[2021-03-22] MEDS: DONEPEZIL 10 MG TABLET PO SCH (22:30)
[2021-03-22] MEDS: INSULIN GLARGINE 100 UNIT/ML SUBCUT SCH (22:33)
[2021-03-22] MEDS: AMPICILLIN INJ 2,000 MG in SODIUM CHLORIDE 0.9% 100 ML IV SCH (22:34)
[2021-03-23] MEDS: PHENYTOIN 100 MG/2 ML VIAL IV SCH ×3 (00:11→12:10)
[2021-03-23] MEDS: ACETAMINOPHEN 325 MG TABLET PO PRN (00:17)
[2021-03-23 04:36] LABS: ABG HCO3 21.8 MMOL/L (20-26); ABG Oxygen Saturation 96.7 % (95-100); ABG PCO2 35.6 MM HG (35-48); ABG PH 7.388 (7.35-7.45); ABG PO2 94.8 MM HG (80-95); ABG TCO2 19.9 MMOL/L (23-27)
[2021-03-23 04:40] LABS: Basophils % 0.2 % (0.0-0.8); NRBC # 0.03 10*3/uL
[2021-03-23 04:55] LABS: Osmolality,Calculated 292.4 MOS/KG (273-304); Potassium 4.7 MMOL/L (3.5-5.1)
[2021-03-23 05:01] LABS: Eosinophils # 0.4 10*3/uL (0.0-0.87); Hematocrit 27.2 VOL% (42.0-52.0); Immature Granulocytes % 0.8 %; Immature Granulocytes Absolute 0.12 #; Lymphocytes # 1.2 10*3/uL (1.4-4.0); Lymphocytes % 8.2 % (21.2-54.2); Mean Corpuscular HGB Conc 28.7 GM/DL (32-36); Mean Corpuscular Volume 96.8 FL (87-102); Mean Platelet Volume 9.8 FL (9.6-12.0); Monocytes % 4.3 % (1.7-12.7); Neutrophils % 83.5 % (38.7-73.9); Platelet Count 272 T/CUMM (130-400); Red Blood Count 2.81 MC/CUMM (3.8-5.5); Red Cell Distribution Width 17.4 % (9.3-17.3); White Blood Count 14.5 T/CUMM (4-12)
[2021-03-23 05:02] LABS: Hemoglobin 7.8 GM/DL (14.0-18.0)
[2021-03-23 05:14] LABS: Eosinophils 4 % (0-10); Hypochromia 1+; Lymphocytes 10 % (20-55); Platelet Estimate Adequate; Segmented Neutrophils 81 % (50-85); Total Cells Counted 100
[2021-03-23] MEDS: INSULIN LISPRO 100 UNIT/ML SUBCUT SCH ×2 (06:36→12:08)
[2021-03-23] MEDS: SEVELAMER CARBONATE POWDER 2.4 GM PACK PO SCH (09:07)
[2021-03-23] MEDS: DICYCLOMINE 20 MG TABLET PO SCH (09:07)
[2021-03-23] MEDS: MEMANTINE 5 MG TABLET PO SCH (09:07)
[2021-03-23] MEDS: AMPICILLIN INJ 2,000 MG in SODIUM CHLORIDE 0.9% 100 ML IV SCH (09:14)
[2021-03-23] MEDS: PANTOPRAZOLE 40 MG VIAL IV SCH (09:14)
[2021-03-23] MEDS ORDERED: GENTAMICIN INJ 120 MG/100 ML PREMIX IV PRN (09:24)
== END 2021-03-23 14:00 | DRG 100 ==
LOC: N.ED 00:32 → N.EDINP 02:54 → SUATTDRO 02:54 → N.TELEN 17:34 → N.ICU 03-20 05:34
PROVIDERS: ADMIT Internal Medicine; ATTEND Internal Medicine